=== PATIENT | female | born 1975 | race Two or more races ===

== ENCOUNTER 2023-01-13 05:55 | Day surgery (SDC) | payer OTHER ==
[~2023-01-13 05:55] MED LIST: PLAQUENIL PO; PREDNISONE PO; PRILOSE PO
== END 2023-01-13 10:55 | disposition home or self-care (01) ==
LOC: CIR.AMB 05:55
PROVIDERS: ATTEND Obstetrics & Gynecology Maternal & Fetal Medicine
DX: N84.0 Polyp of corpus uteri (principal)